=== PATIENT | female | born 1995 | race Two or more races ===

== ENCOUNTER 2020-05-02 06:43 | Emergency (ER) | payer SELFPAY | END 2020-05-02 07:10 | disposition left against medical advice (07) | LOC: ER 06:43 | DX: Z53.21 Procedure and treatment not carried out due to patient leaving prior to being seen by health care provider (principal); Y08.89XA Assault by other specified means, initial encounter; Y93.89 Activity, other specified; Y92.89 Other specified places as the place of occurrence of the external cause; Y99.8 Other external cause status ==